=== PATIENT | male | born 1995 | race Caucasian/White ===

== ENCOUNTER → 2017-11-20 13:42 | Outpatient (REF) | payer MEDICAID, SELFPAY ==
[2017-11-20 21:46] LABS: Abs Immature Grans 0.01 k/cumm (0.0-0.09); Absolute Basophil Count 0.03 k/cumm (0.0-0.2); Absolute Eosinophil Count 0.05 k/cumm (0.0-0.7); Absolute Monocyte Count 0.47 k/cumm (0.11-0.7); Absolute Neutrophil Count 4.33 k/cumm (1.2-6.7); Basophils % 0.5; Eosinophils % 0.8; HGB 14.6 g/dL (13.5-17.5); Immature Grans % 0.2; Lymphocytes % 23.5; Mean Corp. HGB Concentration 32.4 g/dL (32.0-36.0); Mean Corpuscular Hemoglobin 27.4 pg (27.0-33.0); Mean Corpuscular Volume 84.6 fL (80-95); Mean Platelet Volume 12.3 fL (8.0-11.0); Monocytes % 7.4; Neutrophils % 67.6; Platelet Count 195 x1000/uL (130-400); RBC 5.32 m/cumm (4.50-6.00); RBC Distribution Width 12.8 % (11.8-14.1); White Blood Cell Count 6.39 k/cumm (4.4-10.8)
[2017-11-23 11:42] LABS: Hepatitis C Ab w Rflx HCV PCR Negative (NEGAT)
[2017-11-23 11:44] LABS: Hepatitis B Surface Ag Negative (NEGAT)
[2017-11-23 11:45] LABS: HIV-1/2 Ag & Ab Screen Negative (NEGAT)
[2017-11-23 12:57] LABS: Syphilis Serology (RPR) Negative (Negative)
== END ==
LOC: NCHCN 13:42
PROVIDERS: PCP Internal Medicine; Visit Provider Internal Medicine
DX: R03.0 Elevated blood-pressure reading, without diagnosis of hypertension (principal); M54.5 Low back pain; E66.9 Obesity, unspecified; Z11.59 Encounter for screening for other viral diseases; Z11.4 Encounter for screening for human immunodeficiency virus [HIV]; Z11.3 Encounter for screening for infections with a predominantly sexual mode of transmission
CPT/HCPCS: 86803; 87340; 87389; 85025; 86592

== ENCOUNTER 2018-03-01 19:42 | Emergency (ER) | payer MEDICAID, SELFPAY ==
[2018-03-01 19:50] VITALS: BP 136/81; PULSE 83; RESP 16; TEMP 37.2; O2SAT 97
--- NOTE | 2018-03-01 20:35 | W.ED.GENAD ---
Discharge Plan Disposition Patient Disposition: HOME Condition: Fair Discharge Details Chief Complaint: Cellulitis Clinical Impression: Ingrown right big toenail Primary Care Provider: Josue Jimenes ED Provider: Tammy Ramirez Home Meds and New Rx's Prescriptions: New cephalexin [Keflex] 500 mg capsule 500 mg PO QID Qty: 20 RF: 0 Discharge Instructions Instructions: Ingrown Nail (ED) Additional Instructions: Please begin soaks 4-5 times daily. At this point, the nail does not appear infected. However, if you develop increased pain, discharge, spreading of the redness please seek care urgently once again. If you begin the antibiotics, please take the entire course. If you develop new or worsening symptoms please seek care urgently once again Please follow-up with podiatry as soon as possible to discuss definitive treatment Dr. Chavarria in [place]: Dr. Davidson in [facility]: If you are unable to see them in the next week, please follow up with primary care Referrals: Josue Jimenes MD [Primary Care Provider] - Discharge Data Discharge Date/Time-TO BE ENTERED AT DEPARTURE: 03/01/18 20:51 Medical Decision Making Patient 22-year-old male presents today with chief complaint of right toe erythema and ingrown nail. Patient was here a few years ago at which time he was complaining of left ingrown toenail. He reports is been a chronic issue for him. He was seen by podiatry after that and the entire nail was extracted. He fell to the left heel quite well. However, the right, which is also an issue for the patient historically, was only wedge resected. Reports that despite this he is continued to have issues with ingrown nails. Clearly has been cutting back the toenail quite frequently. He denies any fevers or chills. States this is been bothering for the past several months. Feels that the erythema has been spreading. However, on exam, patient has localized erythema, no warmth, no drainage and no pain elicited with palpation. The medial aspect of the nail is bloody and has been cut down very short. Patient is afebrile and nontoxic-appearing. At this point, as there is no acute findings to suggest an infection, I have low suspicion for neck fashion, sepsis all 3 of an acute cellulitis at this point. Patient expects care of ingrown nails. I advised soaking multiple times a day. Advised to keep this covered. Patient will be prescribed antibiotic to begin in the event of an infection arises. We did discuss signs symptoms of infection at length. Advised to follow-up with podiatry once again. He will contact them tomorrow to schedule follow-up appointment. All his questions and concerns were addressed and he is in agreement this plan. HPI General Mode of arrival: ambulatory. Date/Time Provider Initiated Documentation: 03/01/18 20:34. Limitations to Documentation: no limitations. Information obtained by: patient. History of Present Illness 22 year old M presents to the emergency department with the chief complaint of right great toe pain, described as mild, with intensity rated at 4. Quality is described as aching, and is localized to the right and lower extremity. Patient reports no radiation. Patient started experiencing this month(s) and it has been constant. No relieving factors improve symptom(s), No exacerbating factors reported . Patient notes rash (erythema around toe); denies cough, fever/chills and loss of appetite. Patient did receive the following treatments prior to arrival, NSAID Related Data Home Medications Medication Instructions Recorded Confirmed cephalexin [Keflex] 500 mg PO QID #20 cap 03/01/18 Previous Rx's Medication Instructions Recorded cephalexin [Keflex] 500 mg PO QID #20 cap 03/01/18 Allergies Allergy/AdvReac Type Severity Reaction Status Date / Time No Known Allergies Allergy Unverified 03/01/18 19:52 General Stated Complaint: Cellulitis GERARDO: 4 Review of Systems Constitutional Reports as per HPI, Denies chills and Denies fever(s) Musculoskeletal Reports as per HPI Integumentary/Breasts Reports as per HPI Neurologic Reports as per HPI, Denies sensory deficit and Denies paresthesias [facility] Social History Smoking/Tobacco Use Status: Current every day Social History Smoking/Tobacco Use Status: Current every day Exam Const General: cooperative, healthy appearing, comfortable, no acute distress and well developed Nutritional Appearance: average body habitus and well nourished Orientation: alert and awake Resp Effort & Inspection: normal respiratory effort, able to speak in complete sentences and no respiratory distress Cardio Rate: regular rate Rhythm: regular rhythm Skin General skin exam: erythema (along the medial edge of the great toe nail. No discharge or fluctuance. No warmth or pain with palpation) Neuro General: alert and awake Cognition: normal cognition Speech: speech normal Gait: normal gait Sensory Exam: no sensory deficits noted Extrem General: no joint enlargement, no clubbing, cyanosis or edema, no pedal edema, no calf tenderness and normal gait Right upper extremity: full ROM, normal capillary refill and no joint enlargement; abnormal to inspection (as above. Nail has been cut back at unusual angle. Dried blood noted at the edge of the nail) and no edema Psych Appearance: grossly normal and well kempt Mental Status: mental status grossly normal Speech and Movement: speech and movement normal Course Vital Signs Temperature 37.2 C 03/01/18 19:50 Pulse 83 03/01/18 19:50 Respiratory Rate 16 03/01/18 19:50 Blood Pressure 136/81 03/01/18 19:50 Pulse Oximetry 97 03/01/18 19:50 Temperature 37.2 C 03/01/18 19:50 Temperature Source Temporal Artery Scan 03/01/18 19:50 Pulse 83 03/01/18 19:50 Respiratory Rate 16 03/01/18 19:50 Respiratory Effort 03/01/18 19:50 Blood Pressure 136/81 03/01/18 19:50 Blood Pressure Position Sitting 03/01/18 19:50 Pulse Oximetry 97 03/01/18 19:50 Oxygen Delivery Method Room Air 03/01/18 19:50 Oxygen Flow Rate 0 03/01/18 19:50 Pain Level 4 03/01/18 19:50
--- NOTE | 2018-03-01 20:45 | ED.GENADUL_ITS ---
Discharge Plan Disposition Patient Disposition: HOME Condition: Fair Discharge Details Chief Complaint: Cellulitis Clinical Impression: Ingrown right big toenail Primary Care Provider: Josue Jimenes ED Provider: Tammy Ramirez Home Meds and New Rx's Prescriptions: New cephalexin [Keflex] 500 mg capsule 500 mg PO QID Qty: 20 RF: 0 Discharge Instructions Instructions: Ingrown Nail (ED) Additional Instructions: Please begin soaks 4-5 times daily. At this point, the nail does not appear infected. However, if you develop increased pain, discharge, spreading of the redness please seek care urgently once again. If you begin the antibiotics, please take the entire course. If you develop new or worsening symptoms please seek care urgently once again Please follow-up with podiatry as soon as possible to discuss definitive treatment Dr. Chavarria in [place]: Dr. Davidson in [facility]: If you are unable to see them in the next week, please follow up with primary care Referrals: Josue Jimenes MD [Primary Care Provider] - Discharge Data Discharge Date/Time-TO BE ENTERED AT DEPARTURE: 03/01/18 20:51 Medical Decision Making Patient 22-year-old male presents today with chief complaint of right toe erythema and ingrown nail. Patient was here a few years ago at which time he was complaining of left ingrown toenail. He reports is been a chronic issue for him. He was seen by podiatry after that and the entire nail was extracted. He fell to the left heel quite well. However, the right, which is also an issue for the patient historically, was only wedge resected. Reports that despite this he is continued to have issues with ingrown nails. Clearly has been cutting back the toenail quite frequently. He denies any fevers or chills. States this is been bothering for the past several months. Feels that the erythema has been spreading. However, on exam, patient has localized erythema, no warmth, no drainage and no pain elicited with palpation. The medial aspect of the nail is bloody and has been cut down very short. Patient is afebrile and nontoxic-appearing. At this point, as there is no acute findings to suggest an infection, I have low suspicion for neck fashion, sepsis all 3 of an acute cellulitis at this point. Patient expects care of ingrown nails. I advised soaking multiple times a day. Advised to keep this covered. Patient will be prescribed antibiotic to begin in the event of an infection arises. We did discuss signs symptoms of infection at length. Advised to follow-up with podiatry once again. He will contact them tomorrow to schedule follow-up appointment. All his questions and concerns were addressed and he is in agreement this plan. HPI General Mode of arrival: ambulatory . Date/Time Provider Initiated Documentation: 03/01/18 20:34 . Limitations to Documentation: no limitations . Information obtained by: patient . History of Present Illness 22 year old M presents to the emergency department with the chief complaint of right great toe pain, described as mild, with intensity rated at 4. Quality is described as aching, and is localized to the right and lower extremity. Patient reports no radiation. Patient started experiencing this month(s) and it has been constant. No relieving factors improve symptom(s), No exacerbating factors reported . Patient notes rash (erythema around toe) ; denies cough, fever/chills and loss of appetite. Patient did receive the following treatments prior to arrival, NSAID Related Data Home Medications Medication Instructions Recorded Confirmed cephalexin [Keflex] 500 mg PO QID #20 cap 03/01/18 Previous Rx's Medication Instructions Recorded cephalexin [Keflex] 500 mg PO QID #20 cap 03/01/18 Allergies Allergy/AdvReac Type Severity Reaction Status Date / Time No Known Allergies Allergy Unverified 03/01/18 19:52 General Stated Complaint: Cellulitis GERARDO: 4 Review of Systems Constitutional Reports as per HPI, Denies chills and Denies fever(s) Musculoskeletal Reports as per HPI Integumentary/Breasts Reports as per HPI Neurologic Reports as per HPI, Denies sensory deficit and Denies paresthesias [facility] Social History Smoking/Tobacco Use Status: Current every day Social History Smoking/Tobacco Use Status: Current every day Exam Const General: cooperative, healthy appearing, comfortable, no acute distress and well developed Nutritional Appearance: average body habitus and well nourished Orientation: alert and awake Resp Effort & Inspection: normal respiratory effort, able to speak in complete sentences and no respiratory distress Cardio Rate: regular rate Rhythm: regular rhythm Skin General skin exam: erythema (along the medial edge of the great toe nail. No discharge or fluctuance. No warmth or pain with palpation) Neuro General: alert and awake Cognition: normal cognition Speech: speech normal Gait: normal gait Sensory Exam: no sensory deficits noted Extrem General: no joint enlargement, no clubbing, cyanosis or edema, no pedal edema, no calf tenderness and normal gait Right upper extremity: full ROM, normal capillary refill and no joint enlargement; abnormal to inspection (as above. Nail has been cut back at unusual angle. Dried blood noted at the edge of the nail) and no edema Psych Appearance: grossly normal and well kempt Mental Status: mental status grossly normal Speech and Movement: speech and movement normal Course Vital Signs Temperature 37.2 C 03/01/18 19:50 Pulse 83 03/01/18 19:50 Respiratory Rate 16 03/01/18 19:50 Blood Pressure 136/81 03/01/18 19:50 Pulse Oximetry 97 03/01/18 19:50 Temperature 37.2 C 03/01/18 19:50 Temperature Source Temporal Artery Scan 03/01/18 19:50 Pulse 83 03/01/18 19:50 Respiratory Rate 16 03/01/18 19:50 Respiratory Effort 03/01/18 19:50 Blood Pressure 136/81 03/01/18 19:50 Blood Pressure Position Sitting 03/01/18 19:50 Pulse Oximetry 97 03/01/18 19:50 Oxygen Delivery Method Room Air 03/01/18 19:50 Oxygen Flow Rate 0 03/01/18 19:50 Pain Level 4 03/01/18 19:50
== END 2018-03-01 20:51 | disposition home or self-care (01) ==
PROVIDERS: Emergency Provider Physician Assistant; PCP Internal Medicine
DX: L03.031 Cellulitis of right toe (principal)
CPT/HCPCS: 99283

== ENCOUNTER 2018-06-12 14:14 | Emergency (ER) | payer MEDICAID, SELFPAY ==
[2018-06-12 14:20] VITALS: BP 136/85; PULSE 104; RESP 14; TEMP 36.5; O2SAT 97
--- NOTE | 2018-06-12 14:37 | W.ED.GENAD ---
Discharge Plan Disposition Patient Disposition: HOME Condition: Stable Discharge Details Chief Complaint: Sorethroat Clinical Impression: Acute streptococcal pharyngitis Primary Care Provider: Josue Jimenes ED Provider: America Hirsch Home Meds and New Rx's Prescriptions: No Action No Known Home Meds RF: 0 Discharge Instructions Instructions: Pharyngitis (ED) Additional Instructions: Drink plenty of fluids and get plenty of rest. Follow a diet of cool soft liquids and foods for the next few days. Alternate Tylenol and Motrin as needed and directed for pain. Follow-up with your primary care doctor in 1 week for reevaluation. Return immediately to the emergency department any worsening or new concerning symptoms. Discharge Data Discharge Physician: America Hirsch Medical Decision Making 23-year-old male who presents with sore throat, body aches and headache for the past few days. Patient admits to some anterior neck pain near his lymph nodes but denies any posterior neck pain and denies any neck pain at this time. He admits to pain with swallowing liquids and solids but states he has been able to swallow. Heart rate low 100s, remainder vitals within normal limits. Afebrile. Patient appears nontoxic, speaking in full sentences, no trismus, no drooling, no submandibular swelling. He does have bilateral tonsillar erythema and edema and exudates, but uvula midline and no peritonsillar mass. Lungs clear to auscultation. Abdomen soft and nontender. Rapid strep positive. Due to tonsillar edema and pain with swallowing, will give a dose of Decadron. Patient was offered Bicillin shot versus p.o. antibiotics and he prefers the Bicillin injection. Patient instructed to alternate Tylenol and Motrin, follow a diet of cool and soft liquids and solids, follow-up with the primary care doctor and return here at any time if worse. Lab Data Lab results reviewed: Yes I reviewed the patient's lab results. HPI General Mode of arrival: ambulatory. Date/Time Provider Initiated Documentation: 06/12/18 14:25. Limitations to Documentation: no limitations. Information obtained by: patient. HPI Narrative: Patient is a 23-year-old male presents with sore throat, body aches and headache for the past 2 days. States his headaches and body aches have improved but still now with sore throat. He admits to mild cough and right ear pain. He states he felt feverish yesterday for which she took Tylenol. No medications yet today. He denies any neck pain at this time. Related Data Home Medications Medication Instructions Recorded Confirmed Unknown [No Known Home Meds] 06/12/18 06/12/18 Allergies Allergy/AdvReac Type Severity Reaction Status Date / Time No Known Allergies Allergy Unverified 06/12/18 14:21 General Stated Complaint: Sorethroat GERARDO: 3 Review of Systems Review of Systems All systems reviewed & are unremarkable except as noted in HPI and below Constitutional Reports as per HPI, Reports body ache(s), Denies chills, Denies fever(s) and Reports headache(s) Eyes Denies blurry vision ENT Denies dizziness, Reports headache(s), Reports sore throat and Denies throat swelling Cardiovascular Denies chest pain and Denies dyspnea Respiratory Denies cough and Denies dyspnea Gastrointestinal Denies abdominal pain, Denies diarrhea and Denies vomiting Genitourinary Denies hematuria and Denies dysuria Musculoskeletal Denies back pain and Denies numbness Integumentary/Breasts Denies lesions and Denies rash Neurologic Denies dizziness, Reports headache(s), Denies focal weakness and Denies numbness Allergic/Immunologic Denies throat swelling [facility] Medical History No significant past medical history (Acute) Surgical History No significant past surgical history (Acute) Social History Smoking/Tobacco Use Status: Never Alcohol Intake: never Drug use: Daily Substance use type: marijuana Do you feel safe at home: Yes Do you feel safe in your relationship?: Yes Exam Const General: cooperative and healthy appearing Orientation: alert and awake [facility] Head: normal to inspection Ears: hearing grossly normal bilaterally, external ears normal and TM's normal bilaterally General nose exam: external nose normal Face and sinus: normal facial exam Mouth: oral mucosae normal, no drooling and no trismus Teeth and gingiva: dentition normal Throat: uvula midline, no peritonsillar masses and posterior oropharynx abnormal edema, erythema and exudates Eyes General: appearance normal, both eyes and all related structures Eyelids: eyelids normal EOM: EOM intact bilaterally Neck Neck: normal visual inspection, no lymphadenopathy, no meningeal signs and trachea midline Lymphatic: no lymphadenopathy noted Chest Chest: normal inspection of the chest Resp Effort & Inspection: normal respiratory effort and able to speak in complete sentences Auscultation: clear to auscultation bilaterally Cardio Rate: regular rate Rhythm: regular rhythm GI Inspection: normal to inspection Palpation: soft, not firm, no guarding, no hepatosplenomegaly, no masses and nontender Auscultation: normal bowel sounds Skin General skin exam: no rashes or lesions noted Neuro General: alert and awake Cognition: normal cognition Speech: speech normal Gait: normal gait Motor: muscle tone normal throughout Sensory Exam: no sensory deficits noted Extrem General: normal to inspection, full ROM and no edema Psych Appearance: grossly normal Mental Status: mental status grossly normal Speech and Movement: speech and movement normal Affect: normal affect Thought Process: normal Course Vital Signs Temperature 97.7 F 06/12/18 14:20 Pulse 104 H 06/12/18 14:20 Respiratory Rate 14 06/12/18 14:20 Blood Pressure 136/85 06/12/18 14:20 Pulse Oximetry 97 06/12/18 14:20 Temperature 97.7 F 06/12/18 14:20 Pulse 104 H 06/12/18 14:20 Respiratory Rate 14 06/12/18 14:20 Respiratory Effort Non-Labored 06/12/18 14:22 Blood Pressure 136/85 06/12/18 14:20 Blood Pressure Position Sitting 06/12/18 14:20 Pulse Oximetry 97 06/12/18 14:20 Oxygen Delivery Method Room Air 06/12/18 14:20 Oxygen Flow Rate 0 06/12/18 14:20 Pain Level 6 06/12/18 14:20 Lab/Test Results Lab/Test Results: POC Strep Test-LAW(Rapid) Start: 06/12/18 14:34 Freq: Status: Active Protocol: Document 06/12/18 14:34 TB (Rec: 06/12/18 14:34 TB [id number]) Strep test-LAW(Rapid)-POC POC-Strep test-LAW (Rapid) Positive POC-Strep test-LAW (Rapid) Positive
--- NOTE | 2018-06-12 14:40 | ED.GENADUL_ITS ---
Discharge Plan Disposition Patient Disposition: HOME Condition: Stable Discharge Details Chief Complaint: Sorethroat Clinical Impression: Acute streptococcal pharyngitis Primary Care Provider: Josue Jimenes ED Provider: America Hirsch Home Meds and New Rx's Prescriptions: No Action No Known Home Meds RF: 0 Discharge Instructions Instructions: Pharyngitis (ED) Additional Instructions: Drink plenty of fluids and get plenty of rest. Follow a diet of cool soft liquids and foods for the next few days. Alternate Tylenol and Motrin as needed and directed for pain. Follow-up with your primary care doctor in 1 week for reevaluation. Return immediately to the emergency department any worsening or new concerning symptoms. Discharge Data Discharge Physician: America Hirsch Medical Decision Making 23-year-old male who presents with sore throat, body aches and headache for the past few days. Patient admits to some anterior neck pain near his lymph nodes but denies any posterior neck pain and denies any neck pain at this time. He admits to pain with swallowing liquids and solids but states he has been able to swallow. Heart rate low 100s, remainder vitals within normal limits. Afebrile. Patient appears nontoxic, speaking in full sentences, no trismus, no drooling, no submandibular swelling. He does have bilateral tonsillar erythema and edema and exudates, but uvula midline and no peritonsillar mass. Lungs clear to auscultation. Abdomen soft and nontender. Rapid strep positive. Due to tonsillar edema and pain with swallowing, will give a dose of Decadron. Patient was offered Bicillin shot versus p.o. antibiotics and he prefers the Bicillin injection. Patient instructed to alternate Tylenol and Motrin, follow a diet of cool and soft liquids and solids, follow-up with the primary care doctor and return here at any time if worse. Lab Data Lab results reviewed: Yes I reviewed the patient's lab results. HPI General Mode of arrival: ambulatory . Date/Time Provider Initiated Documentation: 06/12/18 14:25 . Limitations to Documentation: no limitations . Information obtained by: patient . HPI Narrative: Patient is a 23-year-old male presents with sore throat, body aches and headache for the past 2 days. States his headaches and body aches have improved but still now with sore throat. He admits to mild cough and right ear pain. He states he felt feverish yesterday for which she took Tylenol. No medications yet today. He denies any neck pain at this time. Related Data Home Medications Medication Instructions Recorded Confirmed Unknown [No Known Home Meds] 06/12/18 06/12/18 Allergies Allergy/AdvReac Type Severity Reaction Status Date / Time No Known Allergies Allergy Unverified 06/12/18 14:21 General Stated Complaint: Sorethroat GERARDO: 3 Review of Systems Review of Systems All systems reviewed & are unremarkable except as noted in HPI and below Constitutional Reports as per HPI, Reports body ache(s), Denies chills, Denies fever(s) and Reports headache(s) Eyes Denies blurry vision ENT Denies dizziness, Reports headache(s), Reports sore throat and Denies throat swelling Cardiovascular Denies chest pain and Denies dyspnea Respiratory Denies cough and Denies dyspnea Gastrointestinal Denies abdominal pain, Denies diarrhea and Denies vomiting Genitourinary Denies hematuria and Denies dysuria Musculoskeletal Denies back pain and Denies numbness Integumentary/Breasts Denies lesions and Denies rash Neurologic Denies dizziness, Reports headache(s), Denies focal weakness and Denies numbness Allergic/Immunologic Denies throat swelling [facility] Medical History No significant past medical history (Acute) Surgical History No significant past surgical history (Acute) Social History Smoking/Tobacco Use Status: Never Alcohol Intake: never Drug use: Daily Substance use type: marijuana Do you feel safe at home: Yes Do you feel safe in your relationship?: Yes Exam Const General: cooperative and healthy appearing Orientation: alert and awake [facility] Head: normal to inspection Ears: hearing grossly normal bilaterally, external ears normal and TM's normal bilaterally General nose exam: external nose normal Face and sinus: normal facial exam Mouth: oral mucosae normal, no drooling and no trismus Teeth and gingiva: dentition normal Throat: uvula midline, no peritonsillar masses and posterior oropharynx abnormal edema, erythema and exudates Eyes General: appearance normal, both eyes and all related structures Eyelids: eyelids normal EOM: EOM intact bilaterally Neck Neck: normal visual inspection, no lymphadenopathy, no meningeal signs and trachea midline Lymphatic: no lymphadenopathy noted Chest Chest: normal inspection of the chest Resp Effort & Inspection: normal respiratory effort and able to speak in complete sentences Auscultation: clear to auscultation bilaterally Cardio Rate: regular rate Rhythm: regular rhythm GI Inspection: normal to inspection Palpation: soft, not firm, no guarding, no hepatosplenomegaly, no masses and nontender Auscultation: normal bowel sounds Skin General skin exam: no rashes or lesions noted Neuro General: alert and awake Cognition: normal cognition Speech: speech normal Gait: normal gait Motor: muscle tone normal throughout Sensory Exam: no sensory deficits noted Extrem General: normal to inspection, full ROM and no edema Psych Appearance: grossly normal Mental Status: mental status grossly normal Speech and Movement: speech and movement normal Affect: normal affect Thought Process: normal Course Vital Signs Temperature 97.7 F 06/12/18 14:20 Pulse 104 H 06/12/18 14:20 Respiratory Rate 14 06/12/18 14:20 Blood Pressure 136/85 06/12/18 14:20 Pulse Oximetry 97 06/12/18 14:20 Temperature 97.7 F 06/12/18 14:20 Pulse 104 H 06/12/18 14:20 Respiratory Rate 14 06/12/18 14:20 Respiratory Effort Non-Labored 06/12/18 14:22 Blood Pressure 136/85 06/12/18 14:20 Blood Pressure Position Sitting 06/12/18 14:20 Pulse Oximetry 97 06/12/18 14:20 Oxygen Delivery Method Room Air 06/12/18 14:20 Oxygen Flow Rate 0 06/12/18 14:20 Pain Level 6 06/12/18 14:20 Lab/Test Results Lab/Test Results: POC Strep Test-LAW(Rapid) Start: 06/12/18 14:34 Freq: Status: Active Protocol: Document 06/12/18 14:34 TB (Rec: 06/12/18 14:34 TB [id number]) Strep test-LAW(Rapid)-POC POC-Strep test-LAW (Rapid) Positive POC-Strep test-LAW (Rapid) Positive
[2018-06-12] MEDS: Dexamethasone 10 MG/ML VIAL PO (14:46)
== END 2018-06-12 15:03 | disposition home or self-care (01) ==
PROVIDERS: Emergency Provider Physician Assistant; PCP Internal Medicine
DX: J02.0 Streptococcal pharyngitis (principal)
CPT/HCPCS: 87880; 96372; 99284; 99283; J0561; J1100

== ENCOUNTER 2018-08-04 15:54 | Outpatient (REF) | payer MEDICAID, SELFPAY ==
[2018-08-04 22:07] LABS: Anion Gap 10.4 mmol/L (3-11); BUN 11 mg/dL (7-18); CO2 23.6 mmol/L (21.0-32.0); CREATININE 0.77 mg/dL (0.70-1.30); Calcium 8.9 mg/dL (8.5-10.1); Chloride 103 mmol/L (98-107); Glucose 99 mg/dL (70-100); Potassium 4.2 mmol/L (3.5-5.1); Sodium 137 mmol/L (136-145)
[2018-08-06 10:51] LABS: HIV-1/2 Ag & Ab Screen Negative (NEGAT)
[2018-08-06 13:33] LABS: Hepatitis C Ab w Rflx HCV PCR Negative (NEGAT)
[2018-08-09 12:40] LABS: Syphilis Serology (RPR) Negative (Negative)
== END 2018-08-04 16:14 ==
LOC: NCHCN 15:54
PROVIDERS: PCP Internal Medicine; Visit Provider Nurse Practitioner Family
DX: Z11.3 Encounter for screening for infections with a predominantly sexual mode of transmission (principal); Z11.4 Encounter for screening for human immunodeficiency virus [HIV]; E66.9 Obesity, unspecified
CPT/HCPCS: 80048; 86803; 87389; 86592; 86780

== ENCOUNTER 2018-08-05 10:42 | Outpatient (REF) | payer MEDICAID, SELFPAY ==
[2018-08-06 15:35] LABS: Chlamydia Result Negative; GC Result Negative; Specimen Description URINE
== END 2018-08-05 11:02 ==
LOC: NCHCN 10:42
PROVIDERS: PCP Internal Medicine; Visit Provider Nurse Practitioner Family
DX: Z11.3 Encounter for screening for infections with a predominantly sexual mode of transmission (principal)
CPT/HCPCS: 87491; 87591

== ENCOUNTER 2018-09-18 11:47 | Emergency (ER) | payer MEDICAID, SELFPAY ==
[2018-09-18 11:52] VITALS: BP 117/52; PULSE 69; RESP 16; TEMP 36.8; O2SAT 97
--- NOTE | 2018-09-18 12:00 | W.ED.GENAD ---
Discharge Plan Disposition Patient Disposition: HOME Condition: Improving Discharge Details Chief Complaint: Sorethroat Clinical Impression: Acute viral pharyngitis Primary Care Provider: Josue Jimenes ED Provider: Mino Tomlin Home Meds and New Rx's Prescriptions: New Cepacol Sore Throat (augustine-men) 15-3.6 mg lozenge 1 lina MM Q2H PRN (Reason: sore throat) Qty: 16 RF: 0 Continued lamotrigine [Lamictal] 25 mg Tablet 50 mg PO DAILY RF: 0 buspirone 10 mg Tablet 10 mg PO DAILY RF: 0 buspirone 15 mg Tablet 15 mg PO BID RF: 0 Discharge Instructions Instructions: Upper Respiratory Infection (ED) Additional Instructions: You were given a single dose of dexamethasone for its anti-inflammatory properties that we will continue to work over the next 30 or so hours. May use Cepacol lozenges as prescribed Continue to push fluids with small, frequent sips of liquids and/or popsicles. Tylenol and/or ibuprofen as needed for pain. Return for any acute concerns. See your regular doctor if not improving in 3 days time Medical Decision Making 23-year-old male with 2 days of sore throat. On exam he has unremarkable vital signs, and oropharynx with erythematous tonsillar pillars but no swelling or exudate. Rapid strep test obtained and negative. Culture will be sent to lab. Most likely a viral pharyngitis. Will treat with a single dose of dexamethasone for its anti-inflammatory properties, Cepacol lozenges, [id number] medicines and fluids. Stable for discharge home at this time HPI General Mode of arrival: ambulatory. Date/Time Provider Initiated Documentation: 09/18/18 11:49. Limitations to Documentation: no limitations. Information obtained by: patient. History of Present Illness 23 year old M presents to the emergency department with the chief complaint of There sore throat x2, described as moderate, Quality is described as dull and constant, and is localized to the mouth. Patient reports no radiation. Patient started experiencing this hour(s) and it has been constant. No relieving factors improve symptom(s), No exacerbating factors reported . Patient notes no other symptoms.. Patient did receive the following treatments prior to arrival, none Related Data Home Medications Medication Instructions Recorded Confirmed benzocaine-menthol [Cepacol Sore 1 lina MM Q2H PRN #16 each 09/18/18 Throat (augustine-men)] buspirone 10 mg PO DAILY 09/18/18 09/18/18 buspirone 15 mg PO BID 09/18/18 09/18/18 lamotrigine [Lamictal] 50 mg PO DAILY 09/18/18 09/18/18 Previous Rx's Medication Instructions Recorded benzocaine-menthol [Cepacol Sore 1 lina MM Q2H PRN #16 each 09/18/18 Throat (augustine-men)] Allergies Allergy/AdvReac Type Severity Reaction Status Date / Time No Known Allergies Allergy Unverified 09/18/18 11:57 General Stated Complaint: Sorethroat GERARDO: 4 Review of Systems Review of Systems Isolated sore throat, has not noted fever. No known sick contacts. Tolerating liquids and solids by mouth. Sick systems reviewed and otherwise negative [facility] Medical History No significant past medical history (Acute) Surgical History No significant past surgical history (Acute) Social History Smoking/Tobacco Use Status: Current-Occasional Alcohol Intake: current Alcohol Intake frequency: a few times a month Drug use: Daily Substance use type: marijuana Do you feel safe at home: Yes Do you feel safe in your relationship?: Yes Exam Narrative Exam Narrative: GEN: awake, alert, oriented 3. Pleasant, well groomed, interactive. HEAD: Normocephalic, atraumatic ENT: Mucous membranes moist, oropharynx with erythematous tonsillar pillars, uvula midline, no exudate or swelling seen, External ear exam unremarkable EYES: PERRL, EOMI NECK: Full ROM, no REN, no menigismus CHEST/RESP: Nontender, clear to auscultation bilateral, no wheeze/rhonchi/rales CARDIOVASCULAR: RRR, no murmur, rub selam. 2+ Rad pulse bilateral ABDOMEN: Soft, nontender, no mass. +Bowel sounds EXT: Full ROM, no edema, no rash Neuro: Grossly normal neurologic exam, conversant, interactive. Psych: Speech fluent, thoughts congruent, affect normal Course Vital Signs Temperature 36.8 C 09/18/18 11:52 Pulse 69 09/18/18 11:52 Respiratory Rate 16 09/18/18 11:52 Blood Pressure 117/52 L 09/18/18 11:52 Pulse Oximetry 97 09/18/18 11:52 Temperature 36.8 C 09/18/18 11:52 Temperature Source Temporal Artery Scan 09/18/18 11:52 Pulse 69 09/18/18 11:52 Respiratory Rate 16 09/18/18 11:52 Respiratory Effort Non-Labored 09/18/18 11:55 Blood Pressure 117/52 L 09/18/18 11:52 Blood Pressure Position Sitting 09/18/18 11:52 Pulse Oximetry 97 09/18/18 11:52 Oxygen Delivery Method Room Air 09/18/18 11:52 Oxygen Flow Rate 0 09/18/18 11:52 Pain Level 5 09/18/18 11:52 Lab/Test Results Lab/Test Results: POC Strep Test-LAW(Rapid) Start: 09/18/18 11:51 Freq: .Rapid Strep Test Status: Active Protocol: Document 09/18/18 12:00 SN (Rec: 09/18/18 12:00 SN [id number]) Strep test-LAW(Rapid)-POC POC-Strep test-LAW (Rapid) Negative POC-Strep test-LAW (Rapid) Negative
--- NOTE | 2018-09-18 12:03 | ED.GENADUL_ITS ---
Discharge Plan Disposition Patient Disposition: HOME Condition: Improving Discharge Details Chief Complaint: Sorethroat Clinical Impression: Acute viral pharyngitis Primary Care Provider: Josue Jimenes ED Provider: Mino Tomlin Home Meds and New Rx's Prescriptions: New Cepacol Sore Throat (augustine-men) 15-3.6 mg lozenge 1 lina MM Q2H PRN (Reason: sore throat) Qty: 16 RF: 0 Continued lamotrigine [Lamictal] 25 mg Tablet 50 mg PO DAILY RF: 0 buspirone 10 mg Tablet 10 mg PO DAILY RF: 0 buspirone 15 mg Tablet 15 mg PO BID RF: 0 Discharge Instructions Instructions: Upper Respiratory Infection (ED) Additional Instructions: You were given a single dose of dexamethasone for its anti-inflammatory properties that we will continue to work over the next 30 or so hours. May use Cepacol lozenges as prescribed Continue to push fluids with small, frequent sips of liquids and/or popsicles. Tylenol and/or ibuprofen as needed for pain. Return for any acute concerns. See your regular doctor if not improving in 3 days time Medical Decision Making 23-year-old male with 2 days of sore throat. On exam he has unremarkable vital signs, and oropharynx with erythematous tonsillar pillars but no swelling or exudate. Rapid strep test obtained and negative. Culture will be sent to lab. Most likely a viral pharyngitis. Will treat with a single dose of dexamethasone for its anti-inflammatory properties, Cepacol lozenges, [id number] medicines and fluids. Stable for discharge home at this time HPI General Mode of arrival: ambulatory . Date/Time Provider Initiated Documentation: 09/18/18 11:49 . Limitations to Documentation: no limitations . Information obtained by: patient . History of Present Illness 23 year old M presents to the emergency department with the chief complaint of There sore throat x2, described as moderate, Quality is described as dull and constant, and is localized to the mouth. Patient reports no radiation. Patient started experiencing this hour(s) and it has been constant. No relieving factors improve symptom(s), No exacerbating factors reported . Patient notes no other symptoms.. Patient did receive the following treatments prior to arrival, none Related Data Home Medications Medication Instructions Recorded Confirmed benzocaine-menthol [Cepacol Sore 1 lina MM Q2H PRN #16 each 09/18/18 Throat (augustine-men)] buspirone 10 mg PO DAILY 09/18/18 09/18/18 buspirone 15 mg PO BID 09/18/18 09/18/18 lamotrigine [Lamictal] 50 mg PO DAILY 09/18/18 09/18/18 Previous Rx's Medication Instructions Recorded benzocaine-menthol [Cepacol Sore 1 lina MM Q2H PRN #16 each 09/18/18 Throat (augustine-men)] Allergies Allergy/AdvReac Type Severity Reaction Status Date / Time No Known Allergies Allergy Unverified 09/18/18 11:57 General Stated Complaint: Sorethroat GERARDO: 4 Review of Systems Review of Systems Isolated sore throat, has not noted fever. No known sick contacts. Tolerating liquids and solids by mouth. Sick systems reviewed and otherwise negative [facility] Medical History No significant past medical history (Acute) Surgical History No significant past surgical history (Acute) Social History Smoking/Tobacco Use Status: Current-Occasional Alcohol Intake: current Alcohol Intake frequency: a few times a month Drug use: Daily Substance use type: marijuana Do you feel safe at home: Yes Do you feel safe in your relationship?: Yes Exam Narrative Exam Narrative: GEN: awake, alert, oriented 3. Pleasant, well groomed, interactive. HEAD: Normocephalic, atraumatic ENT: Mucous membranes moist, oropharynx with erythematous tonsillar pillars, uvula midline, no exudate or swelling seen, External ear exam unremarkable EYES: PERRL, EOMI NECK: Full ROM, no REN, no menigismus CHEST/RESP: Nontender, clear to auscultation bilateral, no wheeze/rhonchi/rales CARDIOVASCULAR: RRR, no murmur, rub selam. 2+ Rad pulse bilateral ABDOMEN: Soft, nontender, no mass. +Bowel sounds EXT: Full ROM, no edema, no rash Neuro: Grossly normal neurologic exam, conversant, interactive. Psych: Speech fluent, thoughts congruent, affect normal Course Vital Signs Temperature 36.8 C 09/18/18 11:52 Pulse 69 09/18/18 11:52 Respiratory Rate 16 09/18/18 11:52 Blood Pressure 117/52 L 09/18/18 11:52 Pulse Oximetry 97 09/18/18 11:52 Temperature 36.8 C 09/18/18 11:52 Temperature Source Temporal Artery Scan 09/18/18 11:52 Pulse 69 09/18/18 11:52 Respiratory Rate 16 09/18/18 11:52 Respiratory Effort Non-Labored 09/18/18 11:55 Blood Pressure 117/52 L 09/18/18 11:52 Blood Pressure Position Sitting 09/18/18 11:52 Pulse Oximetry 97 09/18/18 11:52 Oxygen Delivery Method Room Air 09/18/18 11:52 Oxygen Flow Rate 0 09/18/18 11:52 Pain Level 5 09/18/18 11:52 Lab/Test Results Lab/Test Results: POC Strep Test-LAW(Rapid) Start: 09/18/18 11:51 Freq: .Rapid Strep Test Status: Active Protocol: Document 09/18/18 12:00 SN (Rec: 09/18/18 12:00 SN [id number]) Strep test-LAW(Rapid)-POC POC-Strep test-LAW (Rapid) Negative POC-Strep test-LAW (Rapid) Negative
[2018-09-18] MEDS: Dexamethasone 4 MG TAB 10 MG PO (12:18)
[2018-09-18 13:00] VITALS: BP 130/69; PULSE 100; RESP 20; O2SAT 98
[2018-09-18 13:16] VITALS: BP 118/67; PULSE 98; RESP 20; O2SAT 96
== END 2018-09-18 12:25 | disposition home or self-care (01) ==
PROVIDERS: Emergency Provider Emergency Medicine; PCP Internal Medicine
DX: J02.9 Acute pharyngitis, unspecified (principal)
CPT/HCPCS: 87880; 99283; 87081; J8540

== ENCOUNTER 2018-10-07 16:38 | Outpatient (REF) | payer MEDICAID, SELFPAY | END 2018-10-07 16:58 | LOC: NCHCN 16:38 | PROVIDERS: PCP Internal Medicine; Visit Provider Nurse Practitioner Family | DX: R69 Illness, unspecified (principal) ==

== ENCOUNTER 2018-10-18 22:56 | Emergency (ER) | payer MEDICAID, SELFPAY ==
[2018-10-18 22:58] VITALS: BP 145/63; PULSE 104; RESP 18; TEMP 37.4; O2SAT 98
--- NOTE | 2018-10-18 23:09 | ED.GENADUL_ITS ---
Discharge Plan Disposition Patient Disposition: HOME Condition: Good Discharge Details Chief Complaint: Laceration Clinical Impression: Contusion, Avulsion of skin Primary Care Provider: Josue Jimenes ED Provider: Yair Velazquez Home Meds and New Rx's Prescriptions: No Action lamotrigine [Lamictal] 25 mg Tablet 50 mg PO DAILY RF: 0 buspirone 10 mg Tablet 10 mg PO DAILY RF: 0 buspirone 15 mg Tablet 15 mg PO BID RF: 0 Cepacol Sore Throat (augustine-men) 15-3.6 mg lozenge 1 lina MM Q2H PRN (Reason: sore throat) Qty: 16 RF: 0 Discharge Instructions Instructions: Contusion in Adults (ED), Skin Avulsion (ED) Additional Instructions: You have suffered a mild contusion to your head. Please use ice every hour to help relieve swelling. Take Tylenol or Motrin as needed for pain or mild headache. You have also had a small area of skin scraped off. Your tetanus status is been updated. Please wash this gently with soap and water twice daily, change and dressed the wound with the supplies given to you twice daily. Apply triple antibiotic or bacitracin ointment with each bandage change. After 1 week of this, please continue to change the bandage 1-2 times per day, make sure to leave the skin open to dry at night. If you notice any worsening of your symptoms, or any new symptoms such as vomiting, diarrhea, fever, chills, shortness of breath, chest pain, numbness, weakness, or fainting , please return immediately to the emergency department for reevaluation. Please follow up with your primary care provider as soon as possible for reassessment and reevaluation. As always, it was a pleasure participating in your medical care today. Referrals: Josue Jimenes MD [Primary Care Provider] - Medical Decision Making This is a very pleasant 23-year-old male who presents today for evaluation of fall and skin avulsion. A few hours ago the patient tripped secondary to mechanical mechanism, scraped his right fifth toe, and hit his left forehead on the table. He had no loss of consciousness. Since then he has had no vomiting or dizziness or headache. No bleeding on the toe. Tetanus was updated 9 years ago, we will update again today. Contusion over the scalp is mild, no neurologic deficits on exam, no evidence of hemotympanum, or entrapment for ocular movements. No clinical indication for further imaging at this time with signs and symptoms inconsistent with severe acute intracranial event or fracture. Mechanism mild. Avulsion of the skin on the toe is notably superficial, no active bleeding. The area was cleaned and dressed by nursing staff. We will give bandaging to go home, recommend close follow-up with the patient's PCP for reassessment. Discussed red flags for which to return. Diagnosis contusion, mild skin avulsion. I have extensively reviewed the treatment plan and discharge instructions with the patient and their family. I have addressed all patient concerns at this time. The patient and family was made aware of what symptoms to monitor for that would warrant a return to the emergency department. Discussed the plan with the patient and family, they demonstrate verbal understanding and agreement with our assessment and plan at this time. HPI General Date/Time Provider Initiated Documentation: 10/18/18 23:08 . HPI Narrative: This is a 23-year-old male with a past medical history of bipolar, depression, who presents today for avulsion of skin on his right toe and a mild contusion to his head. Patient states that few hours ago he slipped, and scuffed his right fifth toe on the lateral aspect, and also hit his head on a table. He had no loss of consciousness and he recalls the entire event. He is on no blood thinners. He developed a mild contusion to his left forehead, and an avulsion of the skin on the right toe. He is unsure of his last tetanus update. He denies any significant headache, vision changes, numbness tingling or weakness, bleeding, pain in the foot or toe aside for where the avulsion is. He denies any other associated complaints. No other modifying factors. Related Data Home Medications Medication Instructions Recorded Confirmed benzocaine-menthol [Cepacol Sore 1 lina MM Q2H PRN #16 each 09/18/18 Throat (augustine-men)] buspirone 10 mg PO DAILY 09/18/18 09/18/18 buspirone 15 mg PO BID 09/18/18 09/18/18 lamotrigine [Lamictal] 50 mg PO DAILY 09/18/18 09/18/18 Previous Rx's Medication Instructions Recorded benzocaine-menthol [Cepacol Sore 1 lina MM Q2H PRN #16 each 09/18/18 Throat (augustine-men)] Allergies Allergy/AdvReac Type Severity Reaction Status Date / Time No Known Allergies Allergy Unverified 10/18/18 23:04 General Stated Complaint: Laceration GERARDO: 4 Review of Systems Review of Systems All systems reviewed & are unremarkable except as noted in HPI and below PFSH Social History Smoking/Tobacco Use Status: Current-Occasional Alcohol Intake: current Alcohol Intake frequency: a few times a month Drug use: Daily Substance use type: marijuana Do you feel safe at home: Yes Do you feel safe in your relationship?: Yes Exam Narrative Exam Narrative: 1.Const: Well-nourished, Well-developed, appearing stated age 2.Eyes: PERRL, no conjunctival injection, and symmetrical lids. 3.ENT: Atraumatic external nose and ears. Moist MM. Neck: Symmetric, trachea midline, No thyromegaly. There is no evidence of raccoon eyes, alcantar sign, CSF rhinorrhea, mastoid tenderness, cranial crepitus, hemotympanum, exophthalmos, or hyphema. Patient demonstrates intact dentition with no signs of tooth avulsion or fracture, no signs of jaw deformity, no evidence of a LeFort's fracture, with an intact palate, nose and orbital region. There is no evidence of a nasal septal hematoma. No proptosis. Jaw closes symmetrically. Airway is clear. 4.CVS: +S1/S2, No murmurs or gallops. Peripheral pulses 2+ and equal in all extremities. Brisk capillary refill in all extremities. 5.RESP: Unlabored respiratory effort. Clear to auscultation bilaterally. No wheezes rales or rhonchi 6.GI: Soft, Nontender/Nondistended, No hepatosplenomegaly. No guarding or rebound. 7.MSK: Normocephalic, Extremities w/o deformity or ttp No cyanosis or clubbing, Normal movement of all extremities. Contusion over the right forehead. 8.Skin: Warm, Dry. No rashes. Mild skin avulsion of the superficial skin on the lateral aspect of the fifth toe. No active bleeding. No evidence of deep structure involvement. Avulsion is roughly 7 mm x 7 mm 9.Neuro: debug technician II-XII grossly intact. Sensation grossly intact, no focal neurologic deficits. All 6 cardinal planes of vision are fully intact. No evidence of rotatory or vertical nystagmus. The patient demonstrated a normal [id number], good dexterity. There was no evidence of dysdiadochokinesia. Patient was able to ambulate without difficulty. There was no wide-based gait. Romberg, and roya-do-srms are both normal on testing. Sensation was intact bilaterally as well as muscle strength bilaterally for all extremities. Patient was able to verbalize butter cup with no slurring, or miss pronunciation. 10.Psych: (AAO) x3. Appropriate mood and affect Course Vital Signs Temperature 37.4 C 10/18/18 22:58 Pulse 104 H 10/18/18 22:58 Respiratory Rate 18 10/18/18 22:58 Blood Pressure 145/63 H 10/18/18 22:58 Pulse Oximetry 98 10/18/18 22:58 Temperature 37.4 C 10/18/18 22:58 Temperature Source Skin 10/18/18 22:58 Pulse 104 H 10/18/18 22:58 Respiratory Rate 18 10/18/18 22:58 Respiratory Effort Non-Labored 10/18/18 23:03 Blood Pressure 145/63 H 10/18/18 22:58 Blood Pressure Position Sitting 10/18/18 22:58 Pulse Oximetry 98 10/18/18 22:58
== END 2018-10-18 23:26 | disposition home or self-care (01) ==
PROVIDERS: Emergency Provider Student in an Organized Health Care Education/Training Program; PCP Internal Medicine
DX: S91.114A Laceration without foreign body of right lesser toe(s) without damage to nail, initial encounter (principal); S00.83XA Contusion of other part of head, initial encounter; W01.190A Fall on same level from slipping, tripping and stumbling with subsequent striking against furniture, initial encounter
CPT/HCPCS: 90471; 99284; 99283

== ENCOUNTER 2019-05-12 16:05 | Outpatient (REF) | payer MEDICAID, SELFPAY ==
[2019-05-16 10:50] LABS: HIV-1/2 Ag & Ab Screen Negative (Negative)
[2019-05-16 13:24] LABS: Chlamydia Result Negative (Negative); GC Result Negative (Negative)
== END 2019-05-12 16:25 ==
LOC: NCHCN 16:05
PROVIDERS: PCP Internal Medicine; Visit Provider Internal Medicine
DX: Z11.4 Encounter for screening for human immunodeficiency virus [HIV] (principal); Z11.3 Encounter for screening for infections with a predominantly sexual mode of transmission
CPT/HCPCS: 87389; 87491; 87591

== ENCOUNTER 2019-12-23 12:01 | Emergency (ER) | payer MEDICAID, SELFPAY ==
[2019-12-23 12:05] VITALS: BP 110/76; PULSE 82; RESP 16; TEMP 36.6; O2SAT 98
--- NOTE | 2019-12-23 12:19 | ED.GENADUL_ITS ---
Discharge Plan Disposition Patient Disposition: HOME Condition: Stable Discharge Details Clinical Impression: Numbness of toes Primary Care Provider: Josue Jimenes ED Provider: Josephine Downey Home Meds and New Rx's Prescriptions: No Action lamotrigine [Lamictal] 25 mg Tablet 50 mg PO DAILY RF: 0 buspirone 10 mg Tablet 10 mg PO DAILY RF: 0 buspirone 15 mg Tablet 15 mg PO BID RF: 0 Cepacol Sore Throat (augustine-men) 15-3.6 mg lozenge 1 lina MM Q2H PRN (Reason: sore throat) Qty: 16 RF: 0 Discharge Instructions Instructions: Paresthesia (ED) Additional Instructions: Follow up with primary care provider in 3-5 days. Return to ED sooner if any worsening or concerns. Increase oral fluids. Your blood glucose fingerstick today was 92 which is within normal limits. I do think that this may have something to do with your recent new boots. You may look into obtaining wider boots to see if that alleviates the problem. Stand Alone Forms: Work Release Referrals: Josue Jimenes MD [Primary Care Provider] - Discharge Data Discharge Date/Time-TO BE ENTERED AT DEPARTURE: 12/23/19 12:45 Medical Decision Making BGL 92 here in department. This time I do suspect is ill fitting boots that patient prior to onset of symptoms. Discussed home care with patient and follow-up with PCP verbalizes understanding. Patient discharged home. HPI General Mode of arrival: ambulatory . Date/Time Provider Initiated Documentation: 12/23/19 12:07 . Limitations to Documentation: no limitations . Information obtained by: patient . HPI Narrative: 24-year-old male presents to the ER with bilateral great toe numbness which is been ongoing for the last 3 weeks. Patient just recently got some new steel toed boots which he is convinced is not the problem. He is concerned for diabetes since this runs in his family. He denies any increased thirst or increased urination. He has no other complaints, no other numbness. No wounds noted. He denies any recent injuries. Upon initial examination he has intact dorsal pedal pulses, cap refill is less than 2 seconds, he does have decreased sensation with palpation on exam. BGL checked which is 92. Will place patient in postop shoes and discuss proper fitting footwear. Related Data Home Medications Medication Instructions Recorded Confirmed benzocaine-menthol [Cepacol Sore 1 lina MM Q2H PRN #16 each 09/18/18 12/23/19 Throat (augustine-men)] buspirone 10 mg PO DAILY 09/18/18 12/23/19 buspirone 15 mg PO BID 09/18/18 12/23/19 lamotrigine [Lamictal] 50 mg PO DAILY 09/18/18 12/23/19 Previous Rx's Medication Instructions Recorded benzocaine-menthol [Cepacol Sore 1 lina MM Q2H PRN #16 each 09/18/18 Throat (augustine-men)] Allergies Allergy/AdvReac Type Severity Reaction Status Date / Time No Known Allergies Allergy Unverified 12/23/19 12:10 General Stated Complaint: Orthopedic GERARDO: 4 Review of Systems All systems reviewed & are unremarkable except as noted in HPI and below Musculoskeletal Musculoskeletal: Reports numbness (Bilateral great toes) Neurologic Neurologic: Reports numbness (Bilateral great toes) [facility] Medical History (Updated 12/23/19 @ 12:25 by Josephine Downey) No significant past medical history Surgical History No significant past surgical history Social History Smoking/Tobacco Use Status: Current-Occasional Alcohol Intake: current Alcohol Intake frequency: a few times a month Drug use: Daily Substance use type: marijuana Do you feel safe at home: Yes Do you feel safe in your relationship?: Yes Exam Narrative Exam Narrative: Constitutional: Alert and oriented x3. Appears stated age. Normal body habitus. Head: Normocephalic, no trauma. Eyes: Pupils PERRLA, Red reflex noted, EOM's intact. Eyelids symmetrical without lesions, discharge, or swelling. ENT: Bilateral TM's WNL, External ear normal to inspection, no mastoid TTP, swelling, or erythema, Nasal turbinates WNL, no nasal discharge. Normal dentition, Posterior pharynx WNL, no exudate. Chest: RRR, Normal S1, S2, distal pulses intact. Resp: Lungs clear to auscultation bilaterally, no wheezes, rales, or rhonchi. Musculoskeletal: Normal gait, 5/5 strength to all four extremities. Skin: No suspicious rashes or lesions. Capillary refill less than 2 sec. Neurologic: Cranial nerves II-XII intact. Alert and oriented x 3. DTR's intact. Hematologic/Lymphatic: No ecchymosis, no lymphadenopathy. Course Vital Signs Vital signs: Vital Signs Temperature 36.6 C 12/23/19 12:05 Pulse 82 12/23/19 12:05 Respiratory Rate 16 12/23/19 12:05 Blood Pressure 110/76 12/23/19 12:05 Pulse Oximetry 98 12/23/19 12:05 Temperature 36.6 C 12/23/19 12:05 Temperature Source Skin 12/23/19 12:05 Pulse 82 12/23/19 12:05 Respiratory Rate 16 12/23/19 12:05 Respiratory Effort Non-Labored 12/23/19 12:09 Blood Pressure 110/76 12/23/19 12:05 Blood Pressure Position Sitting 12/23/19 12:05 Pulse Oximetry 98 12/23/19 12:05 Oxygen Delivery Method Room Air 12/23/19 12:05 Oxygen Flow Rate 0 12/23/19 12:05 Pain Level 0 12/23/19 12:05
--- NOTE | 2019-12-23 12:21 | NUR.NOTE ---
Nursing Note: Referral for patient to get a PCP was given to Care Management. Ksenia Strickland
--- NOTE | 2019-12-23 14:04 | CMPROGNOTE_ITS ---
- If Service Date Differs Date of service: 12/23/19 Time of Service: 14:04 Care Management Progress Note Zachery is seen in the ED today for toe numbness and concerns of diabetes. TOÑA receives a request from ED provider to assist Zachery in establishing care with a PCP. A review of his chart reveals that Zachery is already established at the [facility]. TOÑA telephones the [facility] and confirms that Zachery is a patient at their facility and requests that they outreach to him to schedule a follow-up appointment to address his concerns.
== END 2019-12-23 12:45 | disposition home or self-care (01) ==
PROVIDERS: Emergency Provider Registered Nurse Emergency; PCP Internal Medicine
DX: S99.821A Other specified injuries of right foot, initial encounter (principal); S99.822A Other specified injuries of left foot, initial encounter; R20.0 Anesthesia of skin; X50.9XXA Other and unspecified overexertion or strenuous movements or postures, initial encounter
CPT/HCPCS: 36416; 82962; 99282; 99283

== ENCOUNTER 2020-02-08 14:30 | Outpatient (REF) | payer MEDICAID, SELFPAY ==
[2020-02-13 06:49] LABS: Patient Race White; SARS-CoV-2 RNA Undetected (Undetected); SARS-CoV-2 Specimen Source Nasal
== END 2020-02-08 14:50 ==
LOC: NCHCN 14:30
PROVIDERS: PCP Internal Medicine; Visit Provider Internal Medicine
DX: Z20.828 Contact with and (suspected) exposure to other viral communicable diseases (principal)
CPT/HCPCS: U0003

== ENCOUNTER 2020-02-23 12:23 | Emergency (ER) | payer MEDICAID, SELFPAY ==
[2020-02-23 12:27] VITALS: BP 127/56; PULSE 72; RESP 16; TEMP 36.7; O2SAT 98
--- NOTE | 2020-02-23 12:30 | RT.EKG_ITS ---
APPROVED REPORT Exam: Resting ECG Patient Location: E HR:58 bpm ECG Measurements Heart Rate 58 AXIS GA 147 P 49 QRSd 105 QRS 45 QT 400 T 41 QTc 392 Conclusion Sinus bradycardia...rate< 60, no ST elev
--- NOTE | 2020-02-23 12:40 | ED.GENADUL_ITS ---
Discharge Plan Disposition Patient Disposition: HOME Condition: Improving Discharge Details Clinical Impression: Spasm of thoracic back muscle Primary Care Provider: Josue Jimenes ED Provider: Mino Tomlin Home Meds and New Rx's Prescriptions: New methocarbamol 500 mg tablet 500 mg PO Q6H PRN (Reason: pain) Qty: 14 RF: 0 Continued lamotrigine [Lamictal] 25 mg Tablet 50 mg PO DAILY RF: 0 buspirone 15 mg Tablet 15 mg PO BID RF: 0 Cepacol Sore Throat (augustine-men) 15-3.6 mg lozenge 1 lina MM Q2H PRN (Reason: sore throat) Qty: 16 RF: 0 Discharge Instructions Instructions: Muscle Spasm (ED) Additional Instructions: To rest today. Small, frequent sips of fluids to maintain good hydration. May apply heat to area to reduce discomfort. May use the prescribed methocarbamol as needed for muscular pain and spasm. You may continue Tylenol and ibuprofen as needed for discomfort as well. Return if you develop shortness of breath, increasing pain, or any other acute concerns. Medical Decision Making 24-year-old male presents with abrupt onset of right posterior back pain at home last night/early this morning. He is not short of breath, no fever, has otherwise been well. His exam does reveal some right posterior thoracic tenderness of the musculature. Different diagnosis includes muscular strain or spasm, pneumothorax, PE. Screening laboratories obtained, patient placed in a alarm security or surveillance monitor, referred for chest x-ray and EKG. EKG and chest x-ray are without acute significant findings. Patient's labs are reassuring including unremarkable troponin and D-dimer. Consistent with posterior thoracic strain. Will treat with methocarbamol and NSAIDs. He is stable for outpatient management. HPI General Mode of arrival: ambulatory . Date/Time Provider Initiated Documentation: 02/23/20 12:24 . Limitations to Documentation: no limitations . Information obtained by: patient . History of Present Illness 24 year old M presents to the emergency department with the chief complaint of Right posterior thoracic discomfort this a.m., described as moderate, and is localized to the back and right. Patient reports no radiation. Patient started experien cing this hour(s) and it has been constant. Rest improves symptom(s), Movement worsens symptoms . Patient notes denies chest pain, shortness of breath and syncope. Patient did receive the following treatments prior to arrival, none Related Data Home Medications Medication Instructions Recorded Confirmed Cepacol Sore Throat (aguustine-men) 1 lina MM Q2H PRN #16 each 09/18/18 02/23/20 buspirone 15 mg PO BID 09/18/18 02/23/20 lamotrigine [Lamictal] 50 mg PO DAILY 09/18/18 02/23/20 methocarbamol 500 mg PO Q6H PRN #14 tab 02/23/20 Previous Rx's Medication Instructions Recorded Cepacol Sore Throat (augustine-men) 1 lina MM Q2H PRN #16 each 09/18/18 methocarbamol 500 mg PO Q6H PRN #14 tab 02/23/20 Allergies Allergy/AdvReac Type Severity Reaction Status Date / Time No Known Allergies Allergy Unverified 02/23/20 12:31 General Stated Complaint: Nk/Back Pain GERARDO: 3 Review of Systems Narrative: 6 systems reviewed and otherwise negative [facility] Medical History (Updated 02/23/20 @ 13:48 by Mino Tomlin MD) No significant past medical history Surgical History No significant past surgical history Social History Smoking/Tobacco Use Status: Current-Occasional Tobacco Type: cigarettes Smoking risk assessment performed?: Yes Alcohol Intake: current Alcohol Intake frequency: 0-2 drinks per day Alcohol type: beer and hard liquor Drug use: Daily Substance use type: marijuana Do you feel safe at home: Yes Do you feel safe in your relationship?: Yes Exam Narrative Exam Narrative: GEN: awake, alert, oriented 3. Pleasant, well groomed, interactive. HEAD: Normocephalic, atraumatic ENT: Mucous membranes moist, oropharynx unremarkable, External ear exam unremarkable EYES: PERRL, EOMI NECK: Full ROM, no REN, no menigismus CHEST/RESP: Nontender, clear to auscultation bilateral, no wheeze/rhonchi/rales. Posterior right thoracic tenderness to palpation. No crepitus. CARDIOVASCULAR: RRR, no murmur, rub selam. 2+ Rad pulse bilateral ABDOMEN: Soft, nontender, no mass. +Bowel sounds EXT: Full ROM, no edema, no rash Neuro: Grossly normal neurologic exam, conversant, interactive. Psych: Speech fluent, thoughts congruent, affect normal Course Vital Signs Vital signs: Vital Signs Temperature 36.7 C 02/23/20 12:27 Pulse 72 02/23/20 12:27 Respiratory Rate 16 02/23/20 12:27 Blood Pressure 127/56 L 02/23/20 12:27 Pulse Oximetry 98 02/23/20 12:27 Temperature 36.7 C 02/23/20 12:27 Temperature Source Skin 02/23/20 12:27 Pulse 72 02/23/20 12:27 Respiratory Rate 16 02/23/20 12:27 Respiratory Effort Non-Labored 02/23/20 12:27 Blood Pressure 127/56 L 02/23/20 12:27 Blood Pressure Position Sitting 02/23/20 12:27 Pulse Oximetry 98 02/23/20 12:27 Oxygen Delivery Method Room Air 02/23/20 12:27 Oxygen Flow Rate 0 02/23/20 12:27 Pain Level 8 02/23/20 12:32
[2020-02-23 13:03] LABS: Abs Immature Grans 0.02 10^3/uL (0.0-0.06); Absolute Basophil Count 0.04 10^3/uL (0.0-0.2); Absolute Eosinophil Count 0.08 10^3/uL (0.0-0.7); Absolute Monocyte Count 0.47 10^3/uL (0.1-0.8); Absolute Neutrophil Count 3.69 10^3/uL (1.2-6.7); Basophils % 0.7; Eosinophils % 1.4; HCT 46.6 % (40.0-50.0); HGB 15.3 g/dL (13.5-17.5); Immature Grans % 0.3; Lymphocytes % 27.1; MCH 29.4 pg (27.0-33.0); MCHC 32.8 % (32.0-36.0); MCV 89.6 fL (80-95); MPV 11.7 fL (8.0-11.0); Neutrophils % 62.5; Nucleated RBC 0 %; Platelet Count 204 10^3/uL (130-400); RDW 12.1 % (11.8-14.1); RDW-SD 39.4 fL
[2020-02-23] MEDS: Ketorolac 15 MG/ML VIAL IVP (13:16)
--- NOTE | 2020-02-23 13:17 | DI.RAD_ITS ---
EXAM: XR CHEST 2V PA LATERAL CLINICAL HISTORY: R posterior pain. TECHNIQUE: 2D digital imaging was performed. COMPARISON: CR LEFT SHOULDER COMPLETE from 03/18/2017 FINDINGS: Heart size normal. Mediastinum not widened. Lungs are clear. No pleural effusions. IMPRESSION: No acute pulmonary findings. DATA REPOSITORY: RADIATION DOSE DELIVERED:
[2020-02-23 13:27] LABS: ALT 21 U/L (16-63); AST 16 U/L (15-37); Albumin 4.2 g/dL (3.4-5.0); Alkaline Phosphatase 63 U/L (46-116); Anion Gap 7.6 mmol/L (3-11); BUN 13 mg/dL (7-18); Bilirubin, Total 0.5 mg/dL (0.2-1.0); CO2 24.4 mmol/L (21.0-32.0); Calcium 8.5 mg/dL (8.5-10.1); Chloride 107 mmol/L (98-107); Glucose 91 mg/dL (74-106); Magnesium 2.1 mg/dL (1.8-2.4); Potassium 4.3 mmol/L (3.5-5.1); Sodium 139 mmol/L (136-145); Total Protein 7.7 g/dL (6.4-8.2)
[2020-02-23 13:29] LABS: Troponin I < 0.05 ng/mL (<0.06)
[2020-02-23 13:45] LABS: D-Dimer 251 ng/mlFEU (<500)
[2020-02-23 13:59] VITALS: BP 118/78; PULSE 72; RESP 16; O2SAT 98
== END 2020-02-23 14:11 | disposition home or self-care (01) ==
LOC: ER 13:54
PROVIDERS: Emergency Provider Emergency Medicine; PCP Internal Medicine
DX: M62.830 Muscle spasm of back (principal); S29.012A Strain of muscle and tendon of back wall of thorax, initial encounter; X50.9XXA Other and unspecified overexertion or strenuous movements or postures, initial encounter
CPT/HCPCS: 36415; 80053; 93005; 96374; 99285; 71046; 83735; 84484; 85025; 85379; 93010; 99284; J1885

== ENCOUNTER 2020-03-12 19:36 | Outpatient (REF) | payer MEDICAID, SELFPAY ==
[2020-03-12 21:20] LABS: Hemoglobin A1C 4.8 % (<5.7)
[2020-03-14 10:26] LABS: HIV-1/2 Ag & Ab Screen Negative (Negative)
[2020-03-14 10:55] LABS: Syphilis Serology (RPR) Negative (Negative)
== END 2020-03-12 19:56 ==
LOC: NCHCN 19:36
PROVIDERS: PCP Internal Medicine; Visit Provider Internal Medicine
DX: Z13.1 Encounter for screening for diabetes mellitus (principal); F41.8 Other specified anxiety disorders; Z11.3 Encounter for screening for infections with a predominantly sexual mode of transmission; Z11.4 Encounter for screening for human immunodeficiency virus [HIV]
CPT/HCPCS: 87389; 83036; 86592

== ENCOUNTER 2021-01-25 13:49 | Outpatient (REF) | payer MEDICAID, SELFPAY ==
[2021-01-28 09:45] LABS: Hepatitis C Ab w Rflx HCV PCR Negative (Negative)
[2021-01-28 11:12] LABS: HIV-1/2 Ag & Ab Screen Negative (Negative)
[2021-01-28 12:27] LABS: Syphilis Serology (RPR) Negative (Negative)
== END 2021-01-25 13:50 | disposition home or self-care (01) ==
LOC: NCHCN 13:49
PROVIDERS: PCP Internal Medicine; Visit Provider Family Medicine
DX: F41.8 Other specified anxiety disorders (principal); F43.10 Post-traumatic stress disorder, unspecified; Z11.4 Encounter for screening for human immunodeficiency virus [HIV]; Z11.3 Encounter for screening for infections with a predominantly sexual mode of transmission; Z11.59 Encounter for screening for other viral diseases
CPT/HCPCS: 86803; 87389; 86592

== ENCOUNTER 2021-08-21 20:30 | Outpatient (REF) | payer MEDICAID, SELFPAY ==
[2021-08-23 10:16] LABS: Hepatitis C Ab w Rflx HCV PCR Negative (Negative)
[2021-08-23 10:19] LABS: HIV-1/2 Ag & Ab Screen Negative (Negative)
[2021-08-23 12:02] LABS: Syphilis Serology (RPR) Negative (Negative)
== END 2021-08-21 20:31 | disposition home or self-care (01) ==
LOC: NCHCN 20:30
PROVIDERS: PCP Internal Medicine; Visit Provider Family Medicine
DX: Z11.3 Encounter for screening for infections with a predominantly sexual mode of transmission (principal); Z11.4 Encounter for screening for human immunodeficiency virus [HIV]; Z11.59 Encounter for screening for other viral diseases
CPT/HCPCS: 86803; 87389; 86592

== ENCOUNTER 2022-03-05 14:57 | Outpatient (REF) | payer MEDICAID, SELFPAY ==
[2022-03-05 14:11] LABS: HCT 47.1 % (40.0-50.0); HGB 15.9 g/dL (13.5-17.5); MCH 30.9 pg (27.0-33.0); MCHC 33.8 % (32.0-36.0); MCV 92 fL (80-95); MPV 11.8 fL (8.0-11.0); Platelet Count 176 10^3/uL (130-400); RBC 5.15 10^6/uL (4.36-5.78); RDW 11.4 % (11.8-14.1); RDW-SD 38.7 fL; WBC 4.62 10^3/uL (4.4-10.8)
[2022-03-05 14:46] LABS: ALT 26 U/L (16-63); AST 21 U/L (15-37); Albumin 4.3 g/dL (3.4-5.0); Alkaline Phosphatase 86 U/L (46-116); Anion Gap 7.8 mmol/L (3-11); BUN 14 mg/dL (7-18); Bilirubin, Total 0.5 mg/dL (0.2-1.0); CO2 28.2 mmol/L (21.0-32.0); CREATININE 0.8 mg/dL (0.70-1.30); Calcium 8.7 mg/dL (8.5-10.1); Chloride 104 mmol/L (98-107); Estimated GFR 126.74 (mL/min/1.73m2); Glucose 94 mg/dL (74-106); Potassium 4.4 mmol/L (3.5-5.1); Sodium 140 mmol/L (136-145); TSH (W/Ref FT4) 1.71 uIU/mL (0.36-3.74); Total Protein 7.3 g/dL (6.4-8.2)
== END 2022-03-05 14:58 | disposition home or self-care (01) ==
LOC: NCHCN 14:57
PROVIDERS: PCP Internal Medicine; Visit Provider Family Medicine
DX: R07.89 Other chest pain (principal); E66.8 Other obesity; F41.8 Other specified anxiety disorders
CPT/HCPCS: 80053; 85027; 84443